=== PATIENT | male | born 1940 | race Hispanic/Latino ===

== ENCOUNTER 2021-03-31 07:42 | Observation (INO) | payer MEDICARE ==
[2021-03-30 15:53] LABS: BASOPHILS % (AUTO) 0.6 % (0.0-5.0); EOSINOPHILS % (AUTO) 2.2 % (0.0-8.0); HEMATOCRIT 45.6 % (42-54); LYMPHOCYTES % (AUTO) 39.3 % (21.0-51.0); MEAN CORPUSCULAR HEMOGLOBIN 29.7 pg (27.0-33.0); MEAN CORPUSCULAR VOLUME 92.9 fL (79-99); MONOCYTES % (AUTO) 9.6 % (3.0-13.0); NEUTROPHILS % (AUTO) 47.4 % (40.0-77.0); PLATELET COUNT (AUTO) 222 K/uL (130-400); RED BLOOD CELL COUNT(AUTO) 4.91 MIL/uL (4.50-6.20); RED CELL DISTRIBUTION WIDTH 13.5 % (11.0-15.5); WHITE BLOOD COUNT (AUTO) 9.4 K/uL (4.8-10.8)
[2021-03-30 16:04] LABS: CREATININE 1.4 mg/dL (0.5-1.5); POTASSIUM 4.2 mmol/L (3.5-5.1)
[2021-03-30 16:07] LABS: INR 1.09 (0.85-1.15); PROTHROMBIN TIME 11.8 SEC (9.6-11.6)
[2021-03-30 16:08] LABS: PARTIAL THROMBOPLASTIN TIME 27.2 SEC (26.3-35.5)
[2021-03-30 16:47] VITALS: BP 151/71
[2021-03-31] VITALS (12 sets, daily range): BP systolic 94–156; BP diastolic 59–74
[~2021-03-31] VITALS: Ht 175.3 cm; Wt 117.2 kg
[~2021-03-31 07:42] MED LIST: ASPI-1197 PO; DIGO125T71 PO; LISI10TA24 PO; METO-408 PO
[2021-03-31] MEDS ORDERED: 0.9%NACL 1000ML 1,000 ML IV SCH (08:00)
[2021-03-31] MEDS ORDERED: IODIXANOL 320 MG/ML 100 ML VIAL ONE (08:21)
[2021-03-31] MEDS ORDERED: MIDAZOLAM HCL 1 MG/ML 2ML VIAL ONE ×3 (08:21→09:48)
[2021-03-31] MEDS ORDERED: BUPIVACAINE/PF 0.25% 30ML VIAL IJ ONE (08:21)
[2021-03-31] MEDS ORDERED: CEFAZOLIN SODIUM 1 GM VIAL ONE (08:21)
[2021-03-31] MEDS ORDERED: MEPERIDINE-PF 25 MG/ML SYG ONE ×3 (08:22→09:48)
[2021-03-31] MEDS ORDERED: LIDOCAINE HCL 1% MDV 50ML VIAL ONE (08:22)
[2021-03-31] MEDS ORDERED: ACETAMINOPHEN WITH CODEINE 1 TAB TAB PO PRN (12:00)
[2021-04-01] VITALS: BP 131/69
[2021-04-01 03:38] VITALS: BP 128/76
[2021-04-01 05:01] LABS: BASOPHILS % (AUTO) 0.4 % (0.0-5.0); EOSINOPHILS % (AUTO) 2.4 % (0.0-8.0); HEMATOCRIT 40.8 % (42-54); LYMPHOCYTES % (AUTO) 36.4 % (21.0-51.0); MEAN CORPUSCULAR HGB CONC 33.1 g/dL (32.0-36.0); MEAN CORPUSCULAR VOLUME 90.7 fL (79-99); MONOCYTES % (AUTO) 11.3 % (3.0-13.0); NEUTROPHILS % (AUTO) 48.5 % (40.0-77.0); PLATELET COUNT (AUTO) 184 K/uL (130-400); RED CELL DISTRIBUTION WIDTH 13.3 % (11.0-15.5)
[2021-04-01 05:08] LABS: CREATININE 1.1 mg/dL (0.5-1.5)
[2021-04-01 08:00] VITALS: BP 125/61
[2021-04-01] MEDS ORDERED: DIGOXIN 125 MCG TABLET PO SCH (09:00)
[2021-04-01] MEDS ORDERED: METOPROLOL SUCCINATE 50 MG TAB.SR.24H PO SCH (09:00)
[2021-04-01] MEDS ORDERED: ASPIRIN 81MG CHEW TAB PO SCH (09:00)
[2021-04-01] MEDS ORDERED: LISINOPRIL 10 MG TABLET PO SCH (09:00)
[2021-04-01 12:00] VITALS: BP 122/61
== END 2021-04-01 15:50 | disposition home or self-care (01) ==
LOC: DAH 07:42 → DAHIP 07:43 → 4DH 12:37
PROVIDERS: ADMIT Internal Medicine; ATTEND Internal Medicine
DX: I44.2 Atrioventricular block, complete (principal); I25.5 Ischemic cardiomyopathy; I49.5 Sick sinus syndrome; I11.0 Hypertensive heart disease with heart failure; I50.22 Chronic systolic (congestive) heart failure; E11.9 Type 2 diabetes mellitus without complications; Z79.82 Long term (current) use of aspirin; Z79.899 Other long term (current) drug therapy; Z98.890 Other specified postprocedural states; Z46.89 Encounter for fitting and adjustment of other specified devices
CPT/HCPCS: 33225; 33233; 33249; 36415 ×2; 71045; 80048 ×2; 85025 ×2; 85610; 85730; 93005; A4215; A4216; A4221; A4222; A4223 ×3; A4606; A4663; C1769; C1882; C1894; C1895; C1896; C1900; G0378 ×28; J0690; J2175 ×3; J2250 ×3; J3490 ×2; J7030; Q9967; 99156; 99157; C1721